=== PATIENT | female | born 1975 | race Caucasian/White ===

== ENCOUNTER → 2019-10-13 | Outpatient (CLI) | payer OTHER ==
--- NOTE | 2019-10-13 11:37 | KCIC ---
Clinical indications: Chronic left-sided TMJ pain. Crepitus and locking. Less prominent right-sided TMJ pain. . Technique: T1-weighted and T2-weighted and gradient echo 3 mm sagittal MRI sequences of the TMJ was performed in the closed and open mouth positions on both sides. An additional T1-weighted coronal 3 mm MRI sequence of both TMJs was performed in the closed-mouth position. MRI sequences were obtained on an open high field strength 1.5 [employer] Siemens Espree MRI scanner. Findings: Left side:: In the closed-mouth position, the disc is located more anterior in position to the mandibular condyle. There is edema of the bilaminar zone ligament between the posterior portion of the disc and the posterior temporal bone fossa. In the open-mouth position, there is reduction of the disc relative to the mandibular condyle. There is normal complete anterior translation of the mandibular condyle. There is no medial or lateral displacement of the disc. The AP dimension of the mandibular condyle is 9 mm. The transverse dimension is 17 no mm. No significant flattening or spurring of the mandibular condyle or flattening of the fossa is seen. No abnormal marrow signal alteration is seen. No significant joint effusion is seen. Right side:: In the closed-mouth position, the disc is located in a normal position relative to the mandibular condyle. In the open-mouth position, there is normal anterior translation of the disc and mandibular condyle. There is no anterior or posterior displacement of the disc. There is no medial or lateral displacement of the disc. The AP dimension of the mandibular condyle is 10 mm. The transverse dimension is 18 mm. No significant flattening or spurring of the mandibular condyle or flattening of the fossa is seen. No abnormal marrow signal alteration is seen. No significant joint effusion is seen. Impression: 1. Partial dislocation of the disc of the left TMJ in the closed mouth position with complete reduction in the open-mouth position and normal complete anterior translation of the mandibular condyle in the open-mouth position. Edema of the bilaminar zone ligament. 2. Normal MRI study of the right TMJ. Electronically signed by: Kev Chan MD (10/13/2019 11:34 AM) [id number]
== END | disposition home or self-care (01) ==
LOC: KCIC MRI 07:50
PROVIDERS: ATTEND Family Medicine
DX: S03.02XA Dislocation of jaw, left side, initial encounter (principal); M26.69 Other specified disorders of temporomandibular joint; X58.XXXA Exposure to other specified factors, initial encounter; Y93.89 Activity, other specified; Y92.89 Other specified places as the place of occurrence of the external cause; Y99.8 Other external cause status
CPT/HCPCS: 70336